=== PATIENT | male | born 1955 | race Caucasian/White ===

== ENCOUNTER 2019-06-24 01:40 | Emergency (ER) | payer OTHER, SELFPAY ==
[2019-06-24 01:53] VITALS: BP 156/102; PULSE 123; RESP 16; O2SAT 99; BMI 25.8
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
== END 2019-06-24 01:57 | disposition home or self-care (01) ==
PROVIDERS: Emergency Provider Emergency Medicine
DX: F10.929 Alcohol use, unspecified with intoxication, unspecified (principal)
CPT/HCPCS: 99282